=== PATIENT | male | born 1950 | race African-American/Black ===

== ENCOUNTER 2018-07-18 13:11 | Emergency (ER) | payer OTHER, MEDICAID ==
[~2018-07-18] VITALS: Ht 172.7 cm; Wt 98.0 kg
[2018-07-18 13:13] VITALS: BP 118/57
== END 2018-07-18 16:39 | disposition left against medical advice (07) ==
LOC: ER 13:53
DX: R10.9 Unspecified abdominal pain (principal); Z53.21 Procedure and treatment not carried out due to patient leaving prior to being seen by health care provider